=== PATIENT | male | born 1995 | race Caucasian/White ===

== ENCOUNTER 2023-08-17 14:53 | Outpatient (CLI) | payer BC, SELFPAY ==
--- NOTE | 2023-08-17 15:00 | US_ITS ---
Patient: MARIAH TREJO Facility:?[facility] Patient ID:?[id number] Site Patient ID:?[id number]. Site :?[id number] Study:?US-Testicle Bilateral -08/17/2023 3:43:32 PM Ordering Physician:?LISA STAFFORD Final Report: INDICATION: Scrotal pain TECHNIQUE: Conventional two-dimensional richmond-scale ultrasound of the scrotum as well color- flow and pulsed Doppler of the testes. COMPARISON: None. FINDINGS: Both testes are normal in size, shape and echogenicity. The right testis measures 3.8 x 1.9 x 2.8 cm and the left 3.4 x 1.7 x 2.6 cm. Color flow Doppler demonstrates normal testicular and epididymal blood flow. No epididymal abnormality is evident. No hydrocele is noted. A small varicocele is suggested on the left. No varicocele is evident on the right. A 4 mm scrotolith is demonstrated on the left. IMPRESSION: 1. Normal testes. 2. Small varicocele suggested on the left. Dictated by William Lira MD @ 08/18/2023 1:52:52 PM Signed by:?William Lira MD @08/18/2023 1:52:52 PM (Electronic Signature)
== END 2023-08-17 14:54 | disposition home or self-care (01) ==
LOC: US 14:55
PROVIDERS: PCP Family Medicine; Visit Provider Family Medicine
DX: N50.82 Scrotal pain (principal)
CPT/HCPCS: 76857; 76870; 93976